=== PATIENT | male | born 1935 | race Caucasian/White ===

== ENCOUNTER 2019-10-04 06:24 | Observation (INO) ==
--- NOTE | 2019-09-27 13:56 | Anesthesiology Consultation ---
Date of Service September 27, 2019 Assessment & Plan (1) Encounter for pre-operative examination: Chart Review Chart Review: Acceptable Risk for Surgery (pending evaluation by anesthesia DOS to ensure no recent chest pain ) and Patient NOT seen in Pre Admission Testing Seen by nephro 08/17/19= CKD stage 4 likely due to longstanding HTN and vascular disease. Recent creatine 2.7- better than a few months ago. Rapid decline in kidney function in past year- may need dialysis in future- holding off on access creation until patient closer to needing dialysis. History Surgery Operation Date: 10/04/19 08:00 Proposed Procedures p Biventricular Pacemaker Insert w/Jose Luis Rosa DO Height/Weight Height: 5 ft 4 in Weight: 66.224 kg Allergies Allergy/AdvReac Type Severity Reaction Status Date / Time No Known Allergies Allergy Unverified 09/27/19 11:39 Medications Home Medications Medication Instructions Recorded Confirmed Last Taken Diuretic Titration Plan 1 dose PO UD PRN 09/27/19 09/27/19 Unknown alprazolam 1 mg PO HS PRN 09/27/19 09/27/19 Unknown amiodarone 200 mg PO DAILY 09/27/19 09/27/19 Unknown aspirin [Aspir-81] 81 mg PO DAILY 09/27/19 09/27/19 Unknown atorvastatin 80 mg PO PM 09/27/19 09/27/19 Unknown calcitriol 0.5 mcg PO DAILY 09/27/19 09/27/19 Unknown carbamazepine 200 mg PO BID 09/27/19 09/27/19 Unknown carvedilol 25 mg PO BID 09/27/19 09/27/19 Unknown clopidogrel [Plavix] 75 mg PO DAILY 09/27/19 09/27/19 Unknown ergocalciferol (vitamin D2) 1,250 mcg PO WK 09/27/19 09/27/19 Unknown [Vitamin D2] finasteride 5 mg PO DAILY 09/27/19 09/27/19 Unknown furosemide 40 mg PO QPM 09/27/19 09/27/19 Unknown furosemide 80 mg PO QAM 09/27/19 09/27/19 Unknown hydralazine 25 mg PO TID 09/27/19 09/27/19 Unknown isosorbide mononitrate 60 mg PO DAILY 09/27/19 09/27/19 Unknown multivitamin 1 cap PO DAILY 09/27/19 09/27/19 Unknown nitroglycerin [Nitrostat] 0.4 mg SUBLINGUAL UD PRN 09/27/19 09/27/19 Unknown pantoprazole 40 mg PO DAILY 09/27/19 09/27/19 Unknown potassium chloride 10 meq PO DAILY 09/27/19 09/27/19 Unknown tamsulosin 0.4 mg PO DAILY 09/27/19 09/27/19 Unknown Past Medical History Medical History Asthma Back problem CAD (coronary artery disease) CABG x 3 (MADERA-LAD, SVG-D1, SVG-RCA)- 1984 Chest pain "SOMEWHAT" - FEW WEEKS AGO MOST RECENT OCCURENCE, NITRO X1 CKD (chronic kidney disease) stage 4, GFR 15-29 ml/min COPD (chronic obstructive pulmonary disease) Dyslipidemia Enlarged prostate GERD (gastroesophageal reflux disease) Gusman's Hard of hearing 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 History of heart attack 2003, PT DENIES STENT(S) History of seizure SEVERAL YRS AGO, NONE SINCE HTN (hypertension) Hyperparathyroidism, secondary renal Per records Ischemic cardiomyopathy EF 20-24% Kidney disease ARMANDO (obstructive sleep apnea) Per records - CPAP Pacemaker PAD (peripheral artery disease) PCI to bilateral iliac arteries in 1998 Poor historian SOB (shortness of breath) Thrombocytopenia Urinary frequency Past Surgical History Surgical History History of back surgery History of cardiac pacemaker History of colonoscopy History of heart bypass surgery 1984 AFTER HEART ATTACK Social History Smoking Status: Former smoker Do You Dip or Chew Tobacco: No (HX OF, NONE CURRENT) Smoking End Date: 1984 Hx Alcohol Use: No Hx Substance Use: No substance use type: does not use Testing Laboratory Results 09/26/19= WBC: 4.79 H/H: 13.5/41.0 PLATELETS: 96 (thrombocytopenia- chronic - stable) SODIUM: 143 POTASSIUM: 4.3 CHLORIDE: 108 CO2: 20 BUN: 61 (follows with nephro CKD stage IV) CREATININE: 2.9 (follows with nephro CKD stage IV) GLUCOSE: 88 Electrocardiogram Date: 04/21/19 Findings: + no change from (February 16, 2018) AV dual paced rhythm at 71 bpm. Chest X-Ray Date: 04/21/19 No free air under the diaphragm. Suspect some degree of emphysema. Correlate with intermittent routine outpatient CT thorax screening. Similar enlargement of the cardiomediastinal silhouette, hilar, and interstitial prominence. Questionable small hiatal hernia Echocardiogram Date: 09/07/19 EF: 20 to 24% Left ventricular cavity size is mildly enlarged. Mild concentric LVH. Global hypokinesis. Grade 2 diastolic dysfunction. Biatrial dilation. Mild aortic valve regurgitation. Mild to moderate MR. Mild TR. Mild SC. Mildly elevated right ventricular systolic pressure. Compared to study from 06/14/2017, LV systolic function worse. Stress Test Date: 12/03/16 Type: nuclear Abnormal Lexiscan myocardial perfusion test. Medium size, severe intensity involving the distal and mid inferior wall extending into the inferior lateral wall that is fixed and associated with normal wall motion. This most likely represents prior myocardial infarction. Medium to large sized, severe intensity involving the anterior wall extending into the true apex that is fixed and associated with abnormal wall motion. This most likely represents prior myocardial infarction. There is no myocardium at jeopardy. EF equals 24%. Left ventricle is severely dilated at rest. Cardiac Catheterization Date: 03/09/18 LMCA =100%. LAD 100% with MADERA to LAD = OK. Large thrombus 100% fills by collaterals from graft to diagonal. Left circumflex 100% not grafted. RCA 100% filled by SVG to distal RCA but in the AV groove portion a hazy lesion may be hemodynamically significant. First diagonal 100% and SVG to diagonal has 50% ostial graft lesion and distal hazy 60% lesion which could be significant. Bypass grafts: The MADERA is in situ. The MADERA to the mid LAD is nonstenotic. The SVG to the distal RCA is nonstenotic. The SVG to the first diagonal has 60% stenosis. In summary, potentially ischemic areas are diagonal (which could be PCI'd), RCA-PL branch (which could be PCI'd), and ramus/LCx (which would require PCI of 100% LMCA and offers low to moderate chance of success). PCI could be consider ed but not sure if there is an indication. Recommendations: We can do PCI if referring MDs are sure there is angina viable territory and RCA-PL and diagonal areas, and benefits outweigh risks. (No indication per records that PCI was done) Other Testing Pacer Check 05/31/2019= Medtronic Trish HINES A2DR01. Mode= DDDR. Battery life= 4 years. -VS= <0.1%; -RELIGION INSTRUCTOR= 1.0%; AP-VS= 1.2%; AP-RELIGION INSTRUCTOR= 97.8% (Possible pacer check from 08/28/19- report not available)
--- NOTE | 2019-09-27 14:50 | PAT Medication Instructions ---
Medication Instructions Date of Service September 27, 2019 Home Medications Diuretic Titration Plan 1 dose PO UD PRN alprazolam 1 mg PO HS PRN amiodarone 200 mg PO DAILY aspirin [Aspir-81] 81 mg PO DAILY atorvastatin 80 mg PO PM calcitriol 0.5 mcg PO DAILY carbamazepine 200 mg PO BID carvedilol 25 mg PO BID clopidogrel [Plavix] 75 mg PO DAILY ergocalciferol (vitamin D2) [Vitamin D2] 1,250 mcg PO WK finasteride 5 mg PO DAILY furosemide 40 mg PO QPM furosemide 80 mg PO QAM hydralazine 25 mg PO TID isosorbide mononitrate 60 mg PO DAILY multivitamin 1 cap PO DAILY nitroglycerin [Nitrostat] 0.4 mg SUBLINGUAL UD PRN pantoprazole 40 mg PO DAILY potassium chloride 10 meq PO DAILY tamsulosin 0.4 mg PO DAILY ASK your prescriber and surgeon Check with Dr. Rosa for instructions for the following medications: Diuretic Titration Plan 1 dose PO UD PRN aspirin [Aspir-81] 81 mg PO DAILY carvedilol 25 mg PO BID clopidogrel [Plavix] 75 mg PO DAILY furosemide 40 mg PO QPM furosemide 80 mg PO QAM hydralazine 25 mg PO TID isosorbide mononitrate 60 mg PO DAILY nitroglycerin [Nitrostat] 0.4 mg SUBLINGUAL UD PRN amiodarone 200 mg PO DAILY DO NOT take the morning of surgery calcitriol 0.5 mcg PO DAILY ergocalciferol (vitamin D2) [Vitamin D2] 1,250 mcg PO WK multivitamin 1 cap PO DAILY potassium chloride 10 meq PO DAILY Take morning of surgery With a small sip of water, OTHERWISE NOTHING TO EAT OR DRINK AFTER MIDNIGHT: carbamazepine 200 mg PO BID finasteride 5 mg PO DAILY pantoprazole 40 mg PO DAILY tamsulosin 0.4 mg PO DAILY Other Notes If you have any questions please call us at [phone] or [phone] or [phone] or [phone]
[~2019-10-04 06:24] MED LIST: CEFAZOLIN 1000MG 1,000 MG/7.5 ML SYR IV SCH; LACTATED RINGER'S 1,000 ML IV SCH; SODIUM CHLORIDE 0.9% 1000ML IV SCH
[2019-10-04] MEDS ORDERED: PROPOFOL IV EMULSION 10 MG/ML 100 ML VIAL IV ONE (06:59)
[2019-10-04] MEDS ORDERED: BUPIVACAINE 0.25% 30 ML VIAL ONE (07:12)
[2019-10-04] MEDS ORDERED: LIDOCAINE HCL 1% 20 ML VIAL ONE (07:12)
[2019-10-04] MEDS ORDERED: BACITRACIN OINT 0.9 GM PKT ONE (07:12)
[2019-10-04] MEDS ORDERED: BACITRACIN INJ 50,000 UNIT VIAL ONE (07:12)
[2019-10-04] MEDS ORDERED: fentaNYL citrate 100 MCG/2 ML VIAL ONE (07:21)
[2019-10-04] MEDS ORDERED: MIDAZOLAM HCL 1 MG/ML 2ML VIAL ONE (07:21)
[2019-10-04] MEDS ORDERED: ONDANSETRON INJ 2 MG/ML 2 ML VIAL IV PRN (07:46)
[2019-10-04] MEDS ORDERED: ATROPINE SULFATE 0.1 MG/ML 10ML SYR IV PRN (07:46)
[2019-10-04] MEDS ORDERED: ePHEDrine sulfate 50 MG/ML AMP IV PRN (07:46)
[2019-10-04] MEDS ORDERED: fentaNYL citrate 100 MCG/2 ML VIAL IV PRN (07:46)
--- NOTE | 2019-10-04 07:53 | History & Physical Bridge Note ---
Date of Service October 04, 2019 History & Physical Bridge Note I have examined the patient, reviewed the History & Physical and in the interval since the performance of the History & Physical I have noted the following changes of clinical significance: no changes noted
[2019-10-04] MEDS ORDERED: CEFAZOLIN 250 MG/ML 1 GM VIAL ONE (08:06)
[2019-10-04] MEDS ORDERED: PROPOFOL IV EMULSION 10 MG/ML 20 ML VIAL IV ONE (08:53)
[2019-10-04] MEDS ORDERED: LIDOCAINE HCL 2% 2 ML VIAL/AMP(20MG/ML) INFIL ONE (08:53)
[2019-10-04] MEDS ORDERED: PHENYLEPHRINE 100MCG/ML 5ML SYR ONE (08:53)
[2019-10-04] MEDS ORDERED: ePHEDrine sulfate 50 MG/ML SYR ONE (08:53)
[2019-10-04] MEDS ORDERED: [UNRECOGNIZED DRUG - REMARK] PO PRN (10:12)
--- NOTE | 2019-10-04 10:39 | Operative Report ---
Post Operative Report Pre & Post Diagnosis CHB, ICM, Chronic systolic HF-NYHA Class III Operation Date: 10/04/19 08:00 <No data on this case meets the specified criteria> I identified the patient and participated in the time-out.: Yes Procedure Operation Date: 10/04/19 08:00 Actual Procedures p Upgrade of any system to BIV - Cecily Rosa DO Surgeon Cecily Rosa, Flower Grader none Estimated Blood Loss 20 Findings Consistent with Post-Op Diagnosis Specimens none Description of Procedure see official report I attest to the content of the Intraoperative Record and any orders documented therein. Any exceptions are noted below.
[2019-10-04] MEDS ORDERED: ACETAMINOPHEN 325 MG TAB PO PRN (12:42)
[2019-10-04] MEDS ORDERED: ALPRAZolam 0.5 MG TABLET PO PRN (12:42)
[2019-10-04] MEDS ORDERED: NITROGLYCERIN SL 0.4 MG/TAB TAB SL PRN (12:42)
--- NOTE | 2019-10-04 13:21 | Discharge Summary ---
Date of Service October 05, 2019 Admission HPI Per Admitting Provider pt admitted for elective upgrade to biv pacemaker Admission Exam Per Admitting Provider aaox3, NAD NC/AT, EOMI Supple No JVD Nrl S1/S2, + murmur CTA b/l no w/r/r soft nt/nd + LE edema b/l skin intact no focal deficits Principal Diagnosis chb s/p upgrade to biv pacemaker Discharge Exam aaox3, NAD NC/AT, EOMI Supple No JVD Nrl S1/S2, + murmur CTA b/l no w/r/r soft nt/nd + LE edema b/l skin intact no focal deficits left pectoral incision intact, no hematoma mild ecchymosis Discharge Data Allergies Allergy/AdvReac Type Severity Reaction Status Date / Time No Known Allergies Allergy Verified 10/04/19 06:38 Procedures Performed Operation Date: 10/04/19 08:00 Actual Procedures p Upgrade of any system to BIV - Cecily Rosa DO Ordered Studies ECG: AV paced CXR: No PTX, leads in place BiV Pacemaker Interrogation: Normal lead testing 10/04/19 07:00 EP Lab Images for PACS ONCE Hospital Course (1) Ischemic cardiomyopathy: (2) CHB (complete heart block): (3) Chronic systolic congestive heart failure, NYHA class 3: Total Time Total Time Spent Total Time Spent (In Minutes): 35 Total Time Includes: Examination of the Patient, Discharge Planning, Medication Reconciliation and Other Discharge Plan Discharge Items Patient Disposition: Home - Self-Care Reason For Visit: CHF, CHB, Cardiomopathy - Ischemic Discharge Diagnosis: CHB and ICM s/p upgrade to BiV pacemaker Condition on Discharge: Good Activity: As commented below Activity Comment: do not raise your left elbow over the left shoulder for 1 month Lifting: No more than 10 pounds Lifting Comment: do not lift more than 10 pounds with the left arm for 2 weeks Bathing: Keep incision dry Bathing Comment: keep dressing dry & intact until wound check next week Non-emergency contact: Power Lineman Call non-emergency contact if: you have any medication questions Follow-up/Referrals: Kenzie Jeffries DO [Primary Care Provider] - Diet: Heart Healthy and Low Sodium (2gm) Addtl Attending Provider Instructions: Device and wound check in [facility] next week keep dressing on & dry until wound check look at the device area daily for the next month-if you notice any concerns call Dr. Rosa's office immediately Pending Studies at Discharge: No Stand-Alone Forms: My [facility], Smoking Cessation Medications and DC Order Prescriptions: Continued furosemide 40 mg Tablet 40 mg PO QPM RF: 0 atorvastatin 80 mg Tablet 80 mg PO PM RF: 0 carvedilol 25 mg Tablet 25 mg PO BID RF: 0 potassium chloride 10 mEq Capsule, Extended Release 10 meq PO DAILY RF: 0 alprazolam 1 mg Tablet 1 mg PO HS PRN (Reason: SLEEP OR ANXIETY) RF: 0 amiodarone 200 mg Tablet 200 mg PO DAILY RF: 0 hydralazine 25 mg Tablet 25 mg PO TID RF: 0 clopidogrel [Plavix] 75 mg Tablet 75 mg PO DAILY RF: 0 aspirin [Aspir-81] 81 mg Tablet,Delayed Release (Dr/Ec) 81 mg PO DAILY RF: 0 carbamazepine 200 mg Tablet 200 mg PO BID RF: 0 isosorbide mononitrate 60 mg Tablet Extended Release 24 Hr 60 mg PO DAILY RF: 0 tamsulosin 0.4 mg Capsule 0.4 mg PO DAILY RF: 0 furosemide 80 mg Tablet 80 mg PO QAM RF: 0 pantoprazole 40 mg Tablet,Delayed Release (Dr/Ec) 40 mg PO DAILY RF: 0 calcitriol 0.5 mcg Capsule 0.5 mcg PO DAILY RF: 0 nitroglycerin [Nitrostat] 0.4 mg Tablet, Sublingual 0.4 mg sublingual UD PRN (Reason: Chest Pain) RF: 0 ergocalciferol (vitamin D2) [Vitamin D2] 1,250 mcg (50,000 unit) Capsule 1,250 mcg PO WK RF: 0 multivitamin Capsule 1 cap PO DAILY RF: 0 finasteride 5 mg Tablet 5 mg PO DAILY RF: 0 Diuretic Titration Plan 1 dose PO UD PRN (Reason: HEART FAILURE MANAGEMENT ) RF: 0 Discharge Orders: Discharge Order (Routine); Ordered 10/05/19 Ordered By: Cecily Rosa Admission Data Admit Date/Time: 10/04/19 12:09 Attending Provider: Cecily Rosa Admit Provider: Cecily Rosa Primary Care Provider: Kenzie Jeffries
--- NOTE | 2019-10-04 16:07 | Electrocardiogram Report ---
Test Reason : Blood Pressure : / mmHG Vent. Rate : 070 BPM Atrial Rate : 070 BPM P-R Int : 134 ms QRS Dur : 200 ms QT Int : 486 ms P-R-T Axes : 000 168 -23 degrees QTc Int : 524 ms AV dual-paced rhythm Abnormal ECG When compared with ECG of 17-FEB-2011 09:53, Vent. rate has decreased BY 16 BPM Confirmed by Binh Portillo ([id number]) on 10/04/2019 4:06:35 PM Referred By: Cecily Rosa Confirmed By:Binh Portillo
[2019-10-04] MEDS ORDERED: FUROSEMIDE 40 MG TAB PO SCH (17:00)
[2019-10-04] MEDS: carBAMazepine 200 MG TABLET PO SCH (20:38)
[2019-10-04] MEDS: carvediloL 25 MG TAB PO SCH (20:39)
[2019-10-04] MEDS ORDERED: ATORVASTATIN 40 MG TAB PO SCH (21:00)
--- NOTE | 2019-10-04 21:12 | Operative Report (OR) ---
DATE OF OPERATION: 10/04/2019 PREOPERATIVE DIAGNOSES: Complete heart block, chronic systolic and diastolic heart failure, [place] Heart Association class 3, 100% RV pacing and ischemic cardiomyopathy. POSTOPERATIVE DIAGNOSES: Complete heart block, chronic systolic and diastolic heart failure, [place] Heart Association class 3, 100% RV pacing and ischemic cardiomyopathy. PROCEDURE: Upgrade from a dual chamber permanent pacemaker to a biventricular rate responsive permanent pacemaker under fluoroscopic guidance along with a peripheral and coronary sinus venogram. SURGEON: Cecliy Rosa DO ASSISTANTS: None. ANESTHESIA: Monitored anesthetic care administered via anesthesiology. Please refer to their notes for complete details, but they gave a total of 2 mg of Versed, 100 mcg of fentanyl, 444 mg of propofol. Start time was 8:05 and end time 10:02. ANTIBIOTICS: 1 gram of Ancef. INTRAVENOUS FLUIDS: 200 mL. IV CONTRAST: 30 mL. BLOOD LOSS: 20 mL. URINE OUTPUT: Not applicable. SPECIMENS: None. FINDINGS: See below. DRAINS: None. INDICATIONS: This is an 84-year-old gentleman with past medical history for complete heart block status post dual-chamber pacemaker in September of 2006 with a most recent gen change in April 2015, chronic systolic and diastolic heart failure, [place] Heart Association class 3, ischemic cardiomyopathy, ejection fraction 24% in November of 2016, was 20% in August of 2019, VT and nonsustained VT on amiodarone, coronary artery disease, history of a CABG x3 in 1984 with his most recent catheterization in March of 2018 where his MADERA to LAD was patent, SVG to diagonal with 50% ostial disease and 60% distal disease. The SVG to RCA was patent, but it was hazy flow, peripheral arterial disease status post PCI of the bilateral iliacs in [address] Johnson; hypertension, hyperlipidemia, gastroesophageal reflux disease, chronic kidney disease stage III, benign prostatic hypertrophy and obstructive sleep apnea. Due to the complete heart block, worsening heart failure and ischemic cardiomyopathy, he was recommended an upgrade to a biventricular pacemaker. CONSENT: Consent was obtained prior to the patient going into the electrophysiology lab. The patient was informed of the risks, benefits and alternative procedure. Risks include but not limited to sudden cardiac , cardiac arrhythmias, cerebrovascular accident, myocardial infarction, injury to the blood vessels, chamber of the heart, lung, bleeding, and infection. The patient understood these risks and agreed to the procedure as planned. Informed consent was obtained. DESCRIPTION OF THE PROCEDURE: The patient was brought into the electrophysiology lab in a fasting state. He was connected to continuous cardiac monitoring. A timeout was performed to ensure patient identity and procedure correctly. The patient was prepped and draped over the left infraclavicular space in normal surgical standard fashion. Monitored conscious sedation was given throughout the procedure for patient's comfort level. [place] precautions were maintained throughout the procedure. A 20 mL of 1% lidocaine and bupivacaine mixture were given over the prior surgical incision. The incision was made with prior surgical incision using the PlasmaBlade. Then, dissection was performed down using the PlasmaBlade to the capsule and the device was removed from the pocket. Then, a peripheral venogram using 10 mL of IV contrast diluted in 10 mL of saline followed by 20 mL flush was used to identify the axillary vein. The flow was sluggish, but I was able to get venous access and a Glidewire down without any problems. Then, the 9.5-[place] sheath was inserted over the guidewire without any resistance. Dilator and guidewire were removed. Then over a Glidewire, the MPX coronary sinus outer sheath was advanced into the right atrium under fluoroscopic guidance. Then, the coronary sinus was cannulated using the EP diagnostic Decapolar Biosense coronary sinus catheter. The MPX outer sheath was advanced into the coronary sinus over the EP diagnostic catheter. Then, a coronary sinus venogram was performed with the balloon, I actually did 2 because I had to double inflate the balloon as the coronary sinus was big. There was a nice posterolateral branch that I was easily able to ____ wire with a Whisper wire and then tracked the LV lead over it without any problems. There was adequate pacing and sensing thresholds and no diaphragm. The Whisper wire was removed and a stylet was placed down the lead. Then, the MPX outer sheath was slid under fluoroscopic guidance followed then by the 9.5-[place] sheath was peeled away and the lead was fixated to pectoralis muscle using 0 silk suture. The pocket was expanded a little bit, so that the device could fit in nicely using the PlasmaBlade. Then, the LV lead was attached to the new pacemaker making sure that the pins were in appropriate position, passed set screw and set screws were all tightened. Then, the old pacing right atrial and right ventricular leads were tested intraoperatively, see below for results. Then, they were attached to the new pacemaker making sure that the pins were in appropriate position, passed set screw and set screws were all tightened. The pocket was flushed with copious amounts of bacitracin saline wash and inspected for hemostasis. Then, the pulse generator was placed in antibiotic pouch, making sure that the leads were lying flat beneath the device followed then by being placed in the pocket and the incision was closed in 3-layer fashion with 2-0 Vicryl interrupted suture followed by 3-0 Vicryl interrupted suture followed by a 4-0 Monocryl running stitch, followed by Steri-Strips and a Kei and micropore dressing. EQUIPMENT: 1. Explanted generator is an Trish DOLL [id number], serial number [id number], implanted 04/24/2015. 2. The new pulse generator is a Medtronic Hedy Quad CRTP MRI SureScan [id number], serial number [id number]. 3. The antibiotic pouch is reference [facility] [id number], lot number [id number], expiration 11/30/2019. 1. The right atrial lead is 5076-52 cm, serial number [id number], implanted 10/26/2006. 2. Right ventricular lead 5076-58 cm, serial number [id number], implanted 10/26/2006. 3. The LV lead is a Medtronic 4398-88 cm, serial number [id number]. INTRAOPERATIVE TESTIN. Right atrial lead: P waves 1 millivolt, impedance 418 ohms, threshold 0.6 volts at 0.4 milliseconds. 2. Right ventricular lead: No R-waves. The patient has complete heart block, impedance 554 ohms, threshold 0.6 volts at 0.4 milliseconds. 3. Left ventricular lead programmed LV1-LV2, impedance 790 ohms, threshold 1.3 volts at 0.4 milliseconds. No diaphragmatic stimulation. FINAL MEASUREMENTS THROUGH THE DEVICE: 1. Right atrial lead: P-wave 0.9 millivolts, impedance 380 ohms, threshold 1 volt at 0.4 milliseconds. 2. Right ventricular lead: No R-waves. The patient has complete heart block, impedance 475 ohms, threshold 0.75 volts at 0.4 milliseconds. 3. Left ventricular lead programmed LV2 to LV3, impedance 361 ohms, threshold 0.5 volts at 0.4 milliseconds. There was diaphragm at 8 volts and 1.5 milliseconds, but there was none at 5 volts and 0.4 milliseconds. FINAL PARAMETERS: DDDR 70/120. Right atrial amplitude 2 volts, pulse width 0.4 milliseconds, sensitivity 0.3 millivolts. Right ventricular amplitude 1.5 volts, pulse width 0.4 milliseconds, sensitivity 1.2 millivolts. Left ventricular amplitude 3.5 volts, pulse width 0.4 milliseconds. IMPRESSION: Successful upgrade from a dual chamber rate responsive permanent pacemaker to a biventricular rate responsive permanent pacemaker along with peripheral venogram and coronary sinus venogram under fluoroscopic guidance. PLAN: Monitor patient overnight, 12-lead ECG, chest x-ray. He is not allowed to lift left elbow over left shoulder for 1 month. He cannot lift more than 10 pounds with the left arm for 2 weeks. He is to keep the dressing on and dry until his wound check next week. He can continue his home medications and continue to follow up with general cardiology as scheduled. I attest to the content of the Intraoperative Record and any orders documented therein. Any exception s are noted below.
--- NOTE | 2019-10-05 08:22 | XRay Report ---
XR chest 2V PA/lateral CLINICAL HISTORY: 84 years-old Male presenting with post upgrade to biv ppm. TECHNIQUE: PA and lateral views of the chest were obtained. COMPARISON: None. FINDINGS: Left subclavian pacer with leads to the right atrium, right ventricular apex, and coronary sinus/left ventricle. Median sternotomy wires and bypass graft rings noted. Mediastinal surgical clips. Atheros clerosis of the aortic arch. Cardiac silhouette moderately enlarged. Pulmonary vascular prominence. H eterogeneity of lung markings with mildly prominent interstitial lung markings. No focal opacity. No large effusion or pneumothorax. Degenerative changes of the thoracic spine. Mildly exaggerated thorac ic kyphosis. Upper abdomen normal. IMPRESSION: 1. Appropriately positioned biventricular pacer leads. No pneumothorax or retained surgical material . 2. Part megaly with volume overload and congestive change. This is overall mild. No tracey pulmonary edema. ACT 112: Negative or not required by law. Electronically signed by: Ronald Lizama M.D. 10/05/2019 8:21 AM
[2019-10-05] MEDS: carvediloL 25 MG TAB PO SCH (08:26)
[2019-10-05] MEDS: carBAMazepine 200 MG TABLET PO SCH (08:27)
[2019-10-05] MEDS ORDERED: TAMSULOSIN HCL 0.4 MG CAP PO SCH (09:00)
[2019-10-05] MEDS ORDERED: ISOSORBIDE MONO EXTENDED REL 60 MG TABCR PO SCH (09:00)
[2019-10-05] MEDS ORDERED: ASPIRIN 81 MG ECTAB PO SCH (09:00)
[2019-10-05] MEDS ORDERED: POTASSIUM CHLORIDE 10 MEQ TABCR PO SCH (09:00)
[2019-10-05] MEDS ORDERED: CLOPIDOGREL BISULFATE 75 MG TAB PO SCH (09:00)
[2019-10-05] MEDS ORDERED: PANTOprazole 40 MG TAB PO SCH (09:00)
[2019-10-05] MEDS ORDERED: CALCITRIOL 0.25 MCG CAPSULE PO SCH (09:00)
[2019-10-05] MEDS ORDERED: FUROSEMIDE 80 MG TAB PO SCH (09:00)
[2019-10-05] MEDS ORDERED: FINASTERIDE 5 MG TAB PO SCH (09:00)
[2019-10-05] MEDS ORDERED: AMIODARONE 200 MG TAB PO SCH (09:00)
[2019-10-05] MEDS ORDERED: MULTIVITAMIN TAB PO SCH (09:00)
[2019-10-09] MEDS ORDERED: ERGOCALCIFEROL 50,000 UNITS CAP PO SCH (09:00)
== END 2019-10-05 09:38 | disposition home or self-care (01) ==
LOC: EP 06:24 → 2S 06:24